=== PATIENT | female | born 1970 | race Caucasian/White ===

== ENCOUNTER 2019-11-01 07:29 | Inpatient (IN) | payer MEDICAID, OTHER ==
[2019-11-01] VITALS (10 sets, daily range): BP systolic 99–109; BP diastolic 37–58
[~2019-11-01] VITALS: Ht 157.5 cm; Wt 65.8 kg
[2019-11-01] MEDS ORDERED: METF-815 PO (07:35)
[2019-11-01] MEDS ORDERED: SODIUM CHLORIDE 0.9% 1,000 ML IV ONE (07:44)
[2019-11-01 08:36] LABS: BASOPHILS % 0.5 % (0.0-2.0); EOSINOPHILS % 0.2 % (0.0-5.0); LYMPHOCYTES % 17.2 % (20.0-50.0); MEAN CORPUSCULAR HEMOGLOBIN 20.9 pg (28.0-32.0); MEAN CORPUSCULAR VOLUME 62.5 fL (81.0-99.0); MEAN PLATELET VOLUME 8.8 fl (7.4-10.4); MONOCYTES % 3.3 % (2.0-8.0); NEUTROPHILS % 78.8 % (40.0-76.0); PLATELET 57 x1000/uL (130-400); RED CELL DISTRIBUTION WIDTH 22.2 % (11.6-14.6)
[2019-11-01 08:38] LABS: CHLORIDE 104 mEq/L (98-107); HEMATOCRIT. 9.4 % (36.0-48.0); HEMOGLOBIN. 3.1 g/dL (12.0-16.0)
[2019-11-01 09:49] LABS: KETONES URINE NEGATIVE (NEGATIVE); LEUKOCYTE ESTERASE URINE NEGATIVE (NEGATIVE); NITRITE URINE NEGATIVE (NEGATIVE); PROTEIN URINE 4+ (NEGATIVE); SPECIFIC GRAVITY URINE 1.029 (1.005-1.030); UROBILINOGEN URINE 0.2 E.U./dL (0.2-1.0)
[2019-11-01 09:54] LABS: CLARITY URINE TURBID (CLEAR); COLOR URINE BLOODY (YELLOW); OCCULT BLOOD URINE 3+ (NEGATIVE)
[2019-11-01 09:55] LABS: PLATELET ESTIMATE DECREASED
[2019-11-01 10:47] LABS: HCG SCREEN NEGATIVE
[2019-11-01 15:10] LABS: MEAN CORPUSCULAR HEMOGLOBIN 26.7 pg (28.0-32.0); MEAN CORPUSCULAR VOLUME 76.8 fL (81.0-99.0); RED CELL DISTRIBUTION WIDTH 28.3 % (11.6-14.6)
[2019-11-01 15:36] LABS: HEMATOCRIT 15.4 % (36.0-48.0); HEMOGLOBIN 5.3 g/dL (12.0-16.0); PLATELET 49 x1000/uL (130-400)
[2019-11-01] MEDS ORDERED: CLONIDINE 0.1MG TABLET PO PRN (17:45)
[2019-11-01] MEDS ORDERED: HYDROCODONE/ACETAMINOPHEN 5/325MG TABLET PO PRN (17:45)
[2019-11-01] MEDS ORDERED: DOCUSATE SODIUM 100MG CAPSULE PO PRN (17:45)
[2019-11-01] MEDS ORDERED: ONDANSETRON HCL 4MG/2ML INJ IV PRN (17:45)
[2019-11-01] MEDS ORDERED: LORAZEPAM 0.5MG TABLET PO PRN (17:45)
[2019-11-01] MEDS ORDERED: ACETAMINOPHEN 325MG TABLET PO PRN (17:45)
[2019-11-01] MEDS ORDERED: IPRATROPIUM/ALBUTEROL 0.5-3(2.5)MG/3ML NEB HHN PRN (18:13)
[2019-11-01] MEDS: SODIUM CHLORIDE 0.9% 1,000 ML IV SCH (18:38)
[2019-11-01] MEDS ORDERED: DEXTROSE 50% WATER 50ML SYRINGE IV PRN (19:00)
[2019-11-01] MEDS: BLOOD SUGAR DIAGNOSTIC STRIP TEST SCH (21:03)
[2019-11-01] MEDS: INSULIN LISPRO 100 UNITS/ML SUBCUT SCH (21:08)
[2019-11-02] VITALS (9 sets, daily range): BP systolic 101–112; BP diastolic 54–69
[2019-11-02 05:15] LABS: CHLORIDE 111 mEq/L (98-107)
[2019-11-02 05:22] LABS: TOTAL IRON BINDING CAPACITY 252 ug/dL (250-450)
[2019-11-02 06:06] LABS: BASOPHILS % 0.5 % (0.0-2.0); EOSINOPHILS % 0.2 % (0.0-5.0); HEMATOCRIT. 21.1 % (36.0-48.0); HEMOGLOBIN. 7.5 g/dL (12.0-16.0); LYMPHOCYTES % 23.9 % (20.0-50.0); MEAN CORPUSCULAR HEMOGLOBIN 28.4 pg (28.0-32.0); MEAN PLATELET VOLUME 8.8 fl (7.4-10.4); MONOCYTES % 4.5 % (2.0-8.0); NEUTROPHILS % 70.9 % (40.0-76.0); PLATELET 59 x1000/uL (130-400); RED BLOOD CELL COUNT 2.64 mill/uL (4.2-5.4); RED CELL DISTRIBUTION WIDTH 22.3 % (11.6-14.6)
[2019-11-02] MEDS: SODIUM CHLORIDE 0.9% 1,000 ML IV SCH ×2 (06:23→19:30)
[2019-11-02] MEDS: BLOOD SUGAR DIAGNOSTIC STRIP TEST SCH ×3 (06:35→16:45)
[2019-11-02] MEDS: INSULIN LISPRO 100 UNITS/ML SUBCUT SCH ×3 (06:36→17:15)
[2019-11-02] MEDS ORDERED: FENTANYL CITRATE/PF 50MCG/ML 2ML VIAL ONE (10:13)
[2019-11-02] MEDS ORDERED: MIDAZOLAM HCL 2 MG/2 ML VIAL ONE (10:13)
[2019-11-02] MEDS ORDERED: LIDOCAINE HCL/PF 1% 10 MG/ML 5ML VIAL ONE (10:16)
[2019-11-02] MEDS ORDERED: PROPOFOL 200MG/20ML VIAL IV ONE (10:16)
[2019-11-02] MEDS ORDERED: ROCURONIUM BROMIDE 10MG/ML VIAL 5ML IV ONE (10:21)
[2019-11-02] MEDS ORDERED: SODIUM CHLORIDE 0.9% 10ML VIAL ONE ×2 (10:57→10:58)
[2019-11-02] MEDS ORDERED: EPHEDRINE SULFATE 50MG/ML VIAL ONE (10:57)
[2019-11-02] MEDS ORDERED: CEFAZOLIN SODIUM 1000MG/VIAL ONE (10:58)
[2019-11-02] MEDS ORDERED: ONDANSETRON HCL 4MG/2ML INJ ONE (11:23)
[2019-11-02] MEDS ORDERED: DEXAMETHASONE 4MG/ML 1ML VIAL ONE (11:23)
[2019-11-02] MEDS ORDERED: KETOROLAC 60MG/2ML VIAL IM NR (12:00)
[2019-11-02] MEDS ORDERED: ONDANSETRON HCL 4MG/2ML INJ IV PRN (12:00)
[2019-11-02] MEDS ORDERED: HYDROMORPHONE HCL/PF 2MG/ML CPJ IV PRN (12:15)
[2019-11-02] MEDS ORDERED: ACET650T37 MT (12:50)
[2019-11-02] MEDS ORDERED: HYDR-4001 MT (12:50)
[2019-11-02] MEDS ORDERED: HYDROMORPHONE HCL/PF 2MG/ML CPJ IV NR (13:40)
[2019-11-02 17:46] LABS: HEMATOCRIT 23.3 % (36.0-48.0); HEMOGLOBIN 8.1 g/dL (12.0-16.0); PLATELET 93 x1000/uL (130-400); RED BLOOD CELL COUNT 2.88 mill/uL (4.2-5.4)
== END 2019-11-02 19:44 | disposition home health service (06) | DRG 517 ==
LOC: ER 08:24 → MICUSO 10:01 → 5WST 18:32
PROVIDERS: ADMIT Internal Medicine; ATTEND Internal Medicine
PROC: 30233N1 Transfusion of Nonautologous Red Blood Cells into Peripheral Vein, Percutaneous Approach (ICD-10-PCS; 2019-11-01)
PROC: 0UDB8ZZ Extraction of Endometrium, Via Natural or Artificial Opening Endoscopic (ICD-10-PCS; principal; 2019-11-02)
DX: D25.0 Submucous leiomyoma of uterus (principal); D69.6 Thrombocytopenia, unspecified; N92.0 Excessive and frequent menstruation with regular cycle; D50.9 Iron deficiency anemia, unspecified; E11.65 Type 2 diabetes mellitus with hyperglycemia; E78.00 Pure hypercholesterolemia, unspecified; N84.0 Polyp of corpus uteri; Z79.84 Long term (current) use of oral hypoglycemic drugs; Z98.891 History of uterine scar from previous surgery
CPT/HCPCS: 36415; 71045; 76830; 76856; 80048; 80053; 80061; 81003; 82728; 82962; 83036; 83540; 83550; 84703; 85025; 85027; 85384; 86850; 86900; 86920; 88305; 93005; 99291; J0690; J1100; J1815; J1885; J2250; J2405; J2704; J3010; J3490; J7030; P9016